=== PATIENT | male | born 1955 | race Caucasian/White ===

== ENCOUNTER 2017-01-13 15:58 | Emergency (ER) | payer OTHER ==
[~2017-01-13] VITALS: Ht 167.6 cm; Wt 50.0 kg
[2017-01-13 16:05] VITALS: Ht 167.6 cm; Wt 50.0 kg
[2017-01-13] MEDS ORDERED: FLUORESCEIN STRIP RIGHT EYE ONE (17:00)
[2017-01-13] MEDS ORDERED: CLINDAMYCIN 300 MG INJ IM ONE (17:00)
[2017-01-13] MEDS ORDERED: TETRACAINE 0.5% 4 ML OPH RIGHT EYE ONE (17:00)
[2017-01-13] MEDS ORDERED: CLINDAMYCIN 600 MG INJ IM ONE (17:30)
--- NOTE | 2017-01-13 17:31 | RADRPT ---
PROCEDURE: Ocular ultrasound CLINICAL INDICATION: Right palpebral swelling after cutting metal. Clinical concern for body TECHNIQUE: Real time sonographic imaging of the bilateral globes/orbits is performed and July 1933 bedolla scale and Doppler images are submitted to the PACS for review COMPARISON: None available FINDINGS: Echogenic material is present within the posterior chambers bilaterally but there is no evidence of shadowing or twinkle artifact that indicates the presence of a foreign body. There is normal morphol ogy of the globes bilaterally. The anterior chambers are unremarkable as are the optic nerves which are normal in caliber. Normal blood flow in the periorbital soft tissues is present on Doppler inter rogation. There is no evidence of retinal detachment. RPTAT:HJJR IMPRESSION: 1. No evidence of intraocular or periorbital foreign body. 2. Echogenic material within the posterior chamber bilaterally is of uncertain significance. Physician Brock Date Time Electronically viewed and signed by Physician Brock on 01/13/2017 17:31 /
[2017-01-13] MEDS ORDERED: OPHTHALMIC IRRIG SOLUTION 120 ML ONE (18:05)
[2017-01-13] MEDS ORDERED: CPR3OO3.5 RIGHT EYE (18:22)
[2017-01-13] MEDS ORDERED: CLIN-73 PO (18:23)
--- NOTE | 2017-01-13 18:32 | ERD ---
ER Documentation Chief Complaint Date/Time DATE: 01/13/17 TIME: 18:25 Chief Complaint LEFT UPPER TOOTH PAIN, RIGHT UPPER EYELID SWOLLEN SINCE AM HPI Patient is a 61-year-old male who presents to the ED with left sided dental pain and swelling as well as right sided eye pain. Patient states that he woke up this morning with swelling to his left face. He also states that he was cutting metal yesterday and felt something go in his eye and now it is swollen and painful. He denies blurry vision. Denies chest pain or cough or shortness of breath. Denies fever or chills. No other complaints. ROS All systems reviewed and are negative except as per history of present illness. Medications Home Meds Active Scripts Clindamycin Hcl* (Clindamycin Hcl*) 300 Mg Capsule, 300 MG PO TID for 10 Days, CAP Prov:ANISHA NGO PA-C 01/13/17 Ciprofloxacin Opht* (Ciloxan*) 0.3%-3.5 Opht Oint, 1 APPLIC RIGHT EYE TID for 7 Days, EA Prov:ANISHA NGO PA-C 01/13/17 Allergies Allergies: Coded Allergies: No Known Allergy (Unverified , 01/13/17) PMhx/Soc History of Surgery: No Anesthesia Reaction: No Hx Neurological Disorder: No Hx Respiratory Disorders: Yes (ASTHMA) Hx Cardiac Disorders: Yes (pacer HTN) Hx Psychiatric Problems: No Hx Miscellaneous Medical Probl: Yes (CHOLESTEROL) Hx Alcohol Use: Yes (occas) Hx Substance Use: No Hx Tobacco Use: Yes Smoking Status: Current every day smoker FmHx Family History: No coronary disease, No diabetes, No other Physical Exam Vitals Vital Signs Date Time Temp Pulse Resp B/P Pulse Ox O2 Delivery O2 Flow Rate FiO2 01/13/17 18:50 98.3 66 18 145/88 98 Room Air 01/13/17 16:05 98.3 82 20 150/92 98 Physical Exam GENERAL: Well-developed, well-nourished male. Appears in no acute distress. HEAD: Normocephalic, atraumatic. EYES: Pupils are equally reactive bilaterally. EOMs grossly intact. No conjunctival erythema. foreign body visualized in right eye ENT: Moist mucous membranes. No uvula deviation. No kissing tonsils. No exudates. multiple dental caries. no drainage. mild swelling left side of face with slight erythema. NECK: Supple. No lymphadenopathy or thyromegaly. No meningismus. negative kernig. negative brudinski. LUNG: Clear to auscultation bilaterally. No rhonchi, wheezing, rales or coarse breath sounds. HEART: Regular rate and rhythm. No murmurs, rubs or gallops. BACK: No midline tenderness. Extremities: Equal pulses bilaterally. No peripheral clubbing, cyanosis or edema. No unilateral leg swelling. NEUROLOGIC: Alert and oriented. Moving all four extremities. 5/5 strength in all extremities. Normal speech. Steady gait. SKIN: Normal color. Warm and dry. No rashes or lesions. Capillary refill < 2 seconds Results 24 hrs Current Medications Medications (Trade) Dose Ordered Sig/Blaine Route PRN Reason Start Time Stop Time Status Last Admin Dose Admin Fluorescein Sodium (Bztyc-I-[id number]) 1 strip ONCE ONCE RIGHT EYE 01/13/17 17:00 01/13/17 17:01 DC Tetracaine HCl (Tetracaine 0.5% Steri-Unit Lily) 1 drop ONCE ONCE RIGHT EYE 01/13/17 17:00 01/13/17 17:01 DC Clindamycin Phosphate (Cleocin) 600 mg ONCE ONCE IM 01/13/17 17:00 01/13/17 17:01 DC Clindamycin Phosphate (Cleocin) 600 mg ONCE ONCE IM 01/13/17 17:30 01/13/17 17:31 DC 01/13/17 17:25 Irrigating Solution (Eye Wash) 1 applic STK-MED ONCE .ROUTE 01/13/17 18:05 01/13/17 18:06 DC Procedures/MDM ER COURSE: I kept the patient and/or family informed of laboratory and diagnostic imaging results throughout the emergency room course. MEDICAL DECISION MAKING: This is a 61-year-old male who presents with foreign body to the right eye and left sided dental pain. Vital signs were reviewed. Patient is afebrile. Patient is not hypoxic. Patient is nontoxic or ill-appearing. ED visual acuity was done. Eye was drained using eyewash and tetraine and fluorescein stain. part of foreign body removed using 18 gauge needle. I consulted with my supervising physician Dr Brar who came to examine patient at bedside and agrees with my medical decision making and dishcarge plans. Fluorescein stain and tetracaine applied. No keratitis, abrasions or ulcers seen. Low suspicion for acute angle closure glaucoma, retinal detachment, arterial occlusion, hemorrhage, fracture, ruptured globe, orbital cellulitis, sepsis. DISCHARGE: At this time, patient is stable for discharge and outpatient management with no new complaints during the ER course. Patient was sent home with clindamycin and Ciloxan drops and to follow-up with credit representative as soon as possible. Patient is stable for outpatient therapy.. Patient will be discharged home with instructions to recheck for new or worsening symptoms such as fever, nausea, weakness, LOC and to follow up with primary care in the next 1-2 days. Patient was advised to return to the ER for any new or worsening symptoms. Plan was discussed and patient and/or family understands and agrees. Home instructions were given. Departure Diagnosis: Primary Impression: Pain, dental Additional Impressions: Cellulitis Site of cellulitis: face Qualified Code: L03.211 - Cellulitis of face Corneal rust ring of right eye Condition: Stable Patient Instructions: Dental Abscess, Corneal Foreign Body, Removed, W/ Rust Ring Referrals: [facility] Hours: Mon - Fri 9:00 AM - 5:00 PM Additional Instructions: please see opthalmologist tomorrow Call your primary care doctor TOMORROW for an appointment during the next 1-2 days.See the doctor sooner or return here if your condition worsens before your appointment time. ANISHA NGO PA-C Jan 13, 2017 18:32
[2017-01-13 18:50] VITALS: BP 145/88; PULSE 66; RESP 18; TEMP 98.3
== END 2017-01-13 18:53 | disposition home or self-care (01) ==
LOC: FTE 15:58
DX: K08.89 Other specified disorders of teeth and supporting structures (principal); L03.211 Cellulitis of face; T15.01XA Foreign body in cornea, right eye, initial encounter; J45.909 Unspecified asthma, uncomplicated; I10 Essential (primary) hypertension; F17.210 Nicotine dependence, cigarettes, uncomplicated; X58.XXXA Exposure to other specified factors, initial encounter; Y92.9 Unspecified place or not applicable
CPT/HCPCS: 76536; 96372